=== PATIENT | male | born 1945 | race Asian ===

== ENCOUNTER 2016-10-01 09:23 | Inpatient (IN) | payer MEDICARE ==
[~2016-10-01] VITALS: Ht 160 cm; Wt 71.6 kg
[2016-10-01] MEDS ORDERED: SODIUM CHLORIDE 0.9% 1,000 ML IV ONE (09:39)
[2016-10-01] MEDS ORDERED: ASPIRIN 325 MG TABLET PO ONE (09:39)
[2016-10-01] MEDS ORDERED: ASPI-621 PO (09:51)
[2016-10-01] MEDS ORDERED: LOSA25TA5 PO (09:51)
[2016-10-01] MEDS ORDERED: AMLO10TA2 PO (09:51)
[2016-10-01] MEDS ORDERED: ASPIRIN 325 MG TABLET ONE (09:53)
[2016-10-01 10:30] LABS: PATH.CAST-FLAG NOT PRESENT; SPERM-FLAG NOT PRESENT; SRC-FLAG NOT PRESENT; XTAL-FLAG NOT PRESENT; YLC-FLAG NOT PRESENT
[2016-10-01] MEDS ORDERED: morphine SULFATE 10 MG/ML, 1ML IVPush PRN (11:00)
[2016-10-01] MEDS ORDERED: LORazepam 1MG TABLET PO PRN (11:00)
[2016-10-01] MEDS ORDERED: DOCUSATE 100 MG CAPSULE PO PRN (11:00)
[2016-10-01] MEDS ORDERED: ACETAMINOPHEN 325 MG TABLET PO PRN (11:00)
[2016-10-01] MEDS ORDERED: HYDROcodone/APAP 5/325 TABLET PO PRN (11:00)
[2016-10-01] MEDS ORDERED: NS + 20MEQ KCL 1,000 ML IV SCH (11:00)
[2016-10-01] MEDS ORDERED: GUAIFENESIN/DM 200-20MG, 10ML UDC PO PRN (11:00)
[2016-10-01] MEDS ORDERED: ONDANSETRON 2MG/ML, 2ML IVPush PRN (11:00)
[2016-10-01] MEDS ORDERED: DILTIAZEM 5 MG/ML, 5ML IVPush PRN (11:00)
[2016-10-01] MEDS ORDERED: POLYETHYLENE GLYCOL 17 GM PACKET PO PRN (11:00)
[2016-10-01] MEDS ORDERED: Enoxaparin 1 mg/kg protocol SQ SCH (11:00)
[2016-10-01] MEDS ORDERED: ENOXAPARIN 80 MG/0.8 ML ONE (11:16)
[2016-10-01] MEDS ORDERED: METOPROLOL TARTRATE 50 MG TABLET ONE (11:22)
[2016-10-01] MEDS: METOPROLOL TARTRATE 25 MG TABLET PO SCH ×2 (11:27→20:38)
[2016-10-01] MEDS ORDERED: OMNIPAQUE 350 MG/ML, 100ML BOTTLE ONE (11:52)
[2016-10-01] MEDS ORDERED: FUROSEMIDE 40 MG/4 ML IV ONE (13:00)
[2016-10-01 13:01] VITALS: BP 145/82
[2016-10-01] MEDS ORDERED: ENOXAPARIN 80 MG/0.8 ML SQ SCH (13:11)
[2016-10-01 13:32] VITALS: BP 134/76
[2016-10-01 15:19] LABS: IS PT STATUS REG ER OR PRE ER? NO
[2016-10-01] MEDS: predniSOLONE OPHTH SUSP 1%, 5ML EACHEYE SCH ×2 (15:56→20:40)
[2016-10-01] MEDS: KETOROLAC OPHTH 0.5%, 5ML EACHEYE SCH ×2 (15:56→20:39)
[2016-10-01 19:15] VITALS: BP 148/93
[2016-10-01] MEDS: ATORVASTATIN 80 MG TABLET PO SCH (20:37)
[2016-10-01] MEDS: FAMOTIDINE 40 MG TABLET PO SCH (20:38)
[2016-10-01 21:39] LABS: IS PT STATUS REG ER OR PRE ER? NO
[2016-10-01] MEDS: ENOXAPARIN 80 MG/0.8 ML SQ SCH (23:15)
[2016-10-02 00:54] VITALS: BP 128/60
[2016-10-02] MEDS: predniSOLONE OPHTH SUSP 1%, 5ML EACHEYE SCH ×4 (06:03→21:00)
[2016-10-02] MEDS: KETOROLAC OPHTH 0.5%, 5ML EACHEYE SCH ×4 (06:03→21:00)
[2016-10-02 06:49] VITALS: BP 113/67
[2016-10-02] MEDS ORDERED: FUROSEMIDE 40 MG/4 ML IV ONE (07:30)
[2016-10-02 08:31] LABS: BLOOD UREA NITROGEN 22 mg/dL (7-18)
[2016-10-02] MEDS: OFLOXACIN OPHTH 0.3%, 5ML EACHEYE SCH (09:00)
[2016-10-02] MEDS: FLUTICASONE NASAL SPRAY 16GM NAS SCH (09:00)
[2016-10-02] MEDS: ALLOPURINOL 300 MG TABLET PO SCH (09:47)
[2016-10-02] MEDS: ASPIRIN 81 MG TABLET EC PO SCH (09:47)
[2016-10-02] MEDS: SENNA/DOCUSATE TABLET PO SCH (09:47)
[2016-10-02] MEDS: AMLODIPINE 5 MG TABLET PO SCH (09:47)
[2016-10-02] MEDS: METOPROLOL TARTRATE 25 MG TABLET PO SCH ×2 (09:47→21:32)
[2016-10-02] MEDS: LOSARTAN 25MG TABLET PO SCH (09:47)
[2016-10-02] MEDS: ENOXAPARIN 80 MG/0.8 ML SQ SCH ×2 (11:54→23:13)
[2016-10-02 15:15] VITALS: BP 123/65
[2016-10-02 19:33] VITALS: BP 127/77
[2016-10-02] MEDS: FAMOTIDINE 40 MG TABLET PO SCH (21:00)
[2016-10-02] MEDS: ATORVASTATIN 80 MG TABLET PO SCH (21:31)
[2016-10-03 00:58] VITALS: BP 127/80
[2016-10-03 05:42] LABS: BLOOD UREA NITROGEN 28 mg/dL (7-18)
[2016-10-03 06:34] VITALS: BP 135/74
[2016-10-03] MEDS: FLUTICASONE NASAL SPRAY 16GM NAS SCH (08:19)
[2016-10-03] MEDS: ALLOPURINOL 300 MG TABLET PO SCH (08:19)
[2016-10-03] MEDS: OFLOXACIN OPHTH 0.3%, 5ML EACHEYE SCH (08:19)
[2016-10-03] MEDS: AMLODIPINE 5 MG TABLET PO SCH (08:19)
[2016-10-03] MEDS: SENNA/DOCUSATE TABLET PO SCH (08:19)
[2016-10-03] MEDS: predniSOLONE OPHTH SUSP 1%, 5ML EACHEYE SCH ×2 (08:19→12:02)
[2016-10-03] MEDS: KETOROLAC OPHTH 0.5%, 5ML EACHEYE SCH ×2 (08:19→12:02)
[2016-10-03] MEDS: METOPROLOL TARTRATE 25 MG TABLET PO SCH (08:20)
[2016-10-03] MEDS: LOSARTAN 25MG TABLET PO SCH (08:20)
[2016-10-03] MEDS: ASPIRIN 81 MG TABLET EC PO SCH (08:21)
[2016-10-03] MEDS: ENOXAPARIN 80 MG/0.8 ML SQ SCH (12:33)
[2016-10-03 12:53] VITALS: BP 123/73
[2016-10-03] MEDS ORDERED: APIXABAN 5 MG TABLET PO SCH ×2 (13:00→21:00)
[2016-10-03] MEDS ORDERED: ATOR80TA75 PO (13:07)
[2016-10-03] MEDS ORDERED: CARV12.543 PO (13:07)
[2016-10-03] MEDS ORDERED: ALLO300T PO (13:07)
[2016-10-03] MEDS ORDERED: SPIR25TA PO (13:07)
[2016-10-03] MEDS ORDERED: APIX5TAB PO (13:07)
[2016-10-03] MEDS ORDERED: LOSA25TA2 PO (13:07)
[2016-10-03] MEDS ORDERED: CARVEDILOL 12.5 MG TABLET PO SCH (18:00)
[2016-10-04] MEDS ORDERED: SPIRONOLACTONE 25 MG TABLET PO SCH (09:00)
[2016-10-04] MEDS ORDERED: LOSARTAN 25MG TABLET PO SCH (09:00)
== END 2016-10-03 16:18 | disposition home or self-care (01) | DRG 682 ==
LOC: ED 10:33 → EDIP 10:34 → SUATTDRO 10:44 → ED 10:55 → 5SO 12:20
PROVIDERS: ADMIT Family Medicine; ATTEND Family Medicine
DX: N17.0 Acute kidney failure with tubular necrosis (principal); I50.43 Acute on chronic combined systolic (congestive) and diastolic (congestive) heart failure; I42.9 Cardiomyopathy, unspecified; I48.0 Paroxysmal atrial fibrillation; I11.0 Hypertensive heart disease with heart failure; D72.829 Elevated white blood cell count, unspecified; E11.9 Type 2 diabetes mellitus without complications; E78.5 Hyperlipidemia, unspecified; I25.10 Atherosclerotic heart disease of native coronary artery without angina pectoris; Z79.82 Long term (current) use of aspirin; I25.2 Old myocardial infarction; Z95.5 Presence of coronary angioplasty implant and graft; Z82.49 Family history of ischemic heart disease and other diseases of the circulatory system; Z87.891 Personal history of nicotine dependence; R06.00 Dyspnea, unspecified
CPT/HCPCS: 36415; 71010; 71020; 71275; 80047; 80048; 80061; 81001; 82565; 84484; 85025; 85610; 85730; 93005; 93306; 96360; 96361; 96372; J1650; J1940; Q9967; J7030

== ENCOUNTER → 2017-06-30 | Outpatient (CLI) | payer MEDICARE ==
[~2017-06-30] MED LIST: ALLO300T PO; AMLO10TA2 PO; APIX5TAB PO; ASPI-621 PO; ATOR-2 PO; CARV12.543 PO; LOSA25TA2 PO; LOSA25TA5 PO; SPIR25TA PO
== END ==
LOC: CVU 12:57
PROVIDERS: ATTEND Internal Medicine Cardiovascular Disease
DX: I34.0 Nonrheumatic mitral (valve) insufficiency (principal); I44.7 Left bundle-branch block, unspecified; I77.811 Abdominal aortic ectasia; I10 Essential (primary) hypertension; E11.9 Type 2 diabetes mellitus without complications; E78.5 Hyperlipidemia, unspecified; Z95.5 Presence of coronary angioplasty implant and graft
CPT/HCPCS: 93306

== ENCOUNTER 2018-08-15 09:37 | Outpatient (CLI) | payer MEDICARE ==
[~2018-08-15 09:37] MED LIST changes: -AMLO10TA2 PO; +AMLO10TA8 PO; -ASPI-621 PO; +ASPI81TA45 PO; +LOSA25TA25 PO; -LOSA25TA5 PO
== END 2018-08-15 23:59 | disposition home or self-care (01) ==
LOC: CVU 09:37
PROVIDERS: ATTEND Internal Medicine Cardiovascular Disease
DX: I65.23 Occlusion and stenosis of bilateral carotid arteries (principal); I10 Essential (primary) hypertension
CPT/HCPCS: 93880